=== PATIENT | male | born 1935 | race Caucasian/White ===

== ENCOUNTER 2016-07-13 08:30 | Day surgery (SDC) | payer MEDICARE ==
[2016-07-08 13:40] LABS: HEMOGLOBIN 14.9 g/dL (13.6-17.8)
[2016-07-08 13:53] LABS: BUN (BLOOD UREA NITROGEN) 11 MG/DL (6-23); CHLORIDE, SERUM 97 MMOL/L (96-112); CO2 (CARBON DIOXIDE) 30 MMOL/L (24-34); CREATININE 0.81 MG/DL (0.70-1.30); GFR AFRICAN AMERICAN 98 ML/MIN (>=60); GFR NON AFRICAN AMERICAN 85 ML/MIN (>=60); GLUCOSE, SERUM 107 MG/DL (60-99); POTASSIUM, SERUM 4.6 MMOL/L (3.5-5.3); SODIUM, SERUM 133 MMOL/L (135-148)
--- NOTE | ~2016-07-13 | OP ---
Record Of Operation [facility] [address] [place]. 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 PROCEDURE: Circumcision. SURGEON: Tess Ace M.D. ANESTHESIA: Spinal. COMPLICATIONS: None. DRAINS: None. ESTIMATED BLOOD LOSS: Minimal. BRIEF HISTORY: Mr. Gómez is a 80-year-old white male with a history of postoperative urinary retention and a severe paraphimosis which was treated in my office. He also had some severe candidal infection and due to needing ongoing surgery and having problems in the past, he wanted to proceed with circumcision. The risks of bleeding, infection, anesthesia, injury to adjacent organs, change in penile sensation, etcetera were discussed. There were no unanswered questions. We also discussed placing a catheter preemptively due to his history of postop retention, but he wanted to avoid that. DESCRIPTION OF PROCEDURE: Under excellent general anesthesia, the patient was prepped and draped in a standard supine position. The penile skin was marked circumferentially with a small V left at the frenulum right near the coronal sulcus. A circumferential incision was made along that line. The foreskin was then retracted and a 0.5 cm from the coronal sulcus, a circumferential incision was made in the inner preputial skin. This bridge of skin was then divided in the midline and using sharp dissection, was removed and sent as a specimen. Small bleeders were grasped and electrocoagulated. I then reapproximated the penile skin with interrupted 3-0 chromic sutures. Four quadrant sutures were taken with a box-type suture at the area of the frenulum, these were then connected with interrupted sutures. An excellent cosmetic result was achieved. I placed a sterile dressing of Vaseline gauze, sterile sponge, and Coban, and the procedure was terminated. I plan to discharge Mr. Gómez as an outpatient with the following instructions. DISCHARGE INSTRUCTIONS: 1. Home today. Remove dressing in the a.m. and continue Neosporin for 72 hours. 2. Hydrocodone 5/325 one to two p.o. q.4 hours p.r.n. pain, #15. 3. Follow up in my office in one month for review of pathology and inspection of his incision. Record Of Operation [address] [place]. [address] NAME: TOM GMÓEZ : 37 STATUS : REG [facility] PAT#: [id number] AGE: 80 ADM/REG DATE : 07/13/16 MR#: [id number] REPORT SERV DATE: 07/13/16 DICTATED BY: Tess ACE DATE: 07/13/16 REPORT STATUS : Draft TRANSCRIBED BY: BHASKAR DATE: 07/13/16 LO/BHASKAR Tess Ace M.D. / [id number] CC: Hamida Barrow M.D.
[~2016-07-13 08:30] MED LIST: ADVIL PO; ASAB PO; ATIVAN2I IM; BEN25 PO; BISR PR; BREO ELLIPTA INH; CALMOSEPTINE O2.5 OZ TOP; CARDCD240 PO; CENTRUM PO; COZ50 PO; DSS PO; ETODOLAC ER400 MG PO; FISH-EPA1000 MG PO; FLEX PO; FLONASE NAS; GGDM5ML PO; IBU800 PO; KAOPECTATE262 MG/15 PO; LACT30UDL PO; MAALOX PO; MARI2.5 PO; MOMUD PO; MUCINEX1200 MG PO; NEUR300 PO; PCET PO; PR25R PR; PRILOSEC40 MG PO; SINGULAIR1 PO; SPIRIVA INH; T PO; TAZTIA X1 PO; VENTOLIN HFA INH; ZETIA PO; ZOFRAN 4 MG/2 ML IM; ZOFRAN ODT4 MG SL; ZOFRAN4 PO
== END 2016-07-13 23:59 | disposition home or self-care (01) ==
LOC: SDC 08:30
PROC: 0VTTXZZ Resection of Prepuce, External Approach (ICD-10-PCS; principal; 2016-07-13 10:00)
DX: N47.1 Phimosis (principal); I10 Essential (primary) hypertension; E78.5 Hyperlipidemia, unspecified; Z86.718 Personal history of other venous thrombosis and embolism; J43.9 Emphysema, unspecified; J45.909 Unspecified asthma, uncomplicated; K21.9 Gastro-esophageal reflux disease without esophagitis; Z88.2 Allergy status to sulfonamides; Z79.899 Other long term (current) drug therapy; Z79.82 Long term (current) use of aspirin; Z79.51 Long term (current) use of inhaled steroids
CPT/HCPCS: 36415; 80048; 85014; 85018; 88304; 93005; J0690; J2250; J2405; J3010